=== PATIENT | male | born 1980 ===

== ENCOUNTER 2017-08-24 06:52 | Day surgery (SDC) | payer BC ==
[~2017-08-24 06:52] MED LIST: Buffered Lidocaine 0.9% SYRIN* 5 ML/SYR SYRINGE INTRADERM ONE; Famotidine TAB* 20 MG PO ONE; Metoclopramide TAB* 10 MG PO ONE
[2017-08-24] MEDS ORDERED: Famotidine TAB* 20 MG ONE (07:04)
[2017-08-24] MEDS ORDERED: Metoclopramide TAB* 10 MG ONE (07:04)
[2017-08-24] MEDS ORDERED: Dexamethasone IV* 4 MG/ML 1 ML (4 MG) ONE (08:00)
[2017-08-24] MEDS ORDERED: Mivacurium Chloride* 20 MG/10 ML VIAL IV ONE (08:00)
[2017-08-24] MEDS ORDERED: Ketorolac INJ* 30 MG/ML 1 ML VIAL ONE (08:00)
[2017-08-24] MEDS ORDERED: fentaNYL* 50 MCG/ML 2 ML VIAL (100 MCG VIAL) ONE ×2 (08:00→08:34)
[2017-08-24] MEDS ORDERED: Lidocaine 2% PF * 5 ML VIAL ONE (08:00)
[2017-08-24] MEDS ORDERED: Midazolam* 1 MG/ML 5 ML VIAL (5 MG) ONE (08:00)
[2017-08-24] MEDS ORDERED: Propofol* 10 MG/ML 20 ML BTL IV PUSH ONE (08:00)
[2017-08-24] MEDS ORDERED: Ondansetron INJ* 2 MG/ML VIAL ONE (08:00)
[2017-08-24] MEDS ORDERED: Bupivacaine 0.25% SDV* 30 ML ONE (08:12)
[2017-08-24] MEDS ORDERED: oxyCODONE/Acetamin 5/325 MG* TAB PO PRN (08:15)
[2017-08-24] MEDS ORDERED: fentaNYL* 50 MCG/ML 2 ML VIAL (100 MCG VIAL) IV PRN (08:15)
[2017-08-24] MEDS ORDERED: Naloxone* 0.4 MG/ML 1 ML VIAL IV PRN (08:15)
[2017-08-24] MEDS ORDERED: Ondansetron INJ* 2 MG/ML VIAL IV PRN (08:15)
[2017-08-24] MEDS ORDERED: Lidocain 1% EPI 1:100,000 * 30 ML MDV ONE (09:06)
[2017-08-24] MEDS ORDERED: Bacitracin OINTMENT* 0.5% 0.5 oz TUBE ONE (09:35)
--- NOTE | 2017-08-24 09:43 | BRIEFOPN ---
Brief Operative Note - Surgery Procedures: OPERATIVE REPORT PRE-OP: Chronic pilonidal disease with abscesses POST-OP: Same PROCEDURE: Incision and drainage of chronic pilonidal abscesses and anorectal exam SURGEON: MD Derian ANESTHESIA: General with local with Dr. Maurice ASST: none IVF: min EBL: min SPECIMEN: none DRAIN: none WOUND CLASS: 4 COMPLICATIONS: none TO PACU
[2017-08-24 10:48] VITALS: BP 116/70
--- NOTE | 2017-08-24 14:28 | OP ---
DATE OF OPERATION: 08/24/17 - [facility] DATE OF : 84 SURGEON: Geoffrey Menard MD. ANESTHESIOLOGIST: Dr. Maurice ANESTHESIA: General with local. PRE-OP DIAGNOSIS: Chronic pilonidal disease with abscesses. POST-OP DIAGNOSIS: Chronic pilonidal disease with abscesses with two sinus tracts identified as described below. OPERATIVE PROCEDURE: Incision and drainage of two pilonidal chronic abscesses with seton sutured drainage and anorectal exam under anesthesia. ESTIMATED BLOOD LOSS: Minimal. SPECIMENS: None. COMPLICATIONS: None. WOUND CLASSIFICATION: 4. DRAINS: Two blue vessel loops used as seton sutures in the subcutaneous tissue of the buttocks. BRIEF HISTORY: Mr. Sunday Mckeon is a 36-year-old gentleman who has had at least 10 years of intermittent draining abscesses on bilateral buttock cheeks to the left and right of the midline. He has had some problems with scarring at the midline consistent with pilonidal disease but has not sought care in the past. He complains of severe intermittent discomfort which was spontaneous purulent drainage and improvement in a cycle of persistent infections. He has been on antibiotics in the past. He has had no blood per rectum or noted any incontinence. He has not been treated for perianal or perirectal abscesses. He is now to undergo an elective exam under anesthesia. DESCRIPTION OF PROCEDURE: Written and informed consent was obtained. The patient was taken to the operating room and placed in the supine position. General anesthesia was administered. Then the patient placed in the prone jackknife position. Sequential compression devices and warming blankets were applied. The perineum and both buttocks were prepped and draped in the usual sterile fashion. A timeout verification was completed. On examination at the midline of the sumit cleft, there were some scarring with several pits. At this area however, there was no evidence of abscess or drainage. Laterally to the left about 3 cm off the midline, there was an open chronic area with granulation tissue and induration and when the buttock was palpated, there was purulent discharge. Likewise it was also noted there were two pits at the midline which were chronic and quite furrowed. On the right lateral but lower buttock area, extending almost 8 to 9 cm from the midline and almost lateral to the anus, was a second area of induration with chronic appearing opening and when this was palpated, there was purulent discharge as well. This did not appear to be undrained complete abscess but the area was indurated. The perianal area appeared to be unremarkable without evidence of chronic scarring, pits, fistulous openings and I did perform anoscopy and anorectal exam and I appreciated no evidence of abnormality in the anal canal or distal rectum to suggest fistulous openings. Next, 0.25% Marcaine with 1% lidocaine with epinephrine was infiltrated at the midline and over both areas of the openings left and right. Using a metal probe , I easily passed from the midline to both sinus tract openings both left and right. I opened up the external openings, draining some purulent material as well as a chronic granulation tissue. The tracts were then aggressively debrided with curettes and I opened some at the midline of the sumit cleft to assure adequate drainage. Not wanting to now excise this entire area in consideration of the scar tissue and the relative remote distance of the sinus tract external openings, the decision was made to pass blue vessel loops through both sinus tracts and use these as seton sutures to assure adequate drainage and subsequent resolution of inflammation and infection prior to proceeding with a more formal and possible permanent surgical solution to his problems. Once this was complete, Bacitracin was applied to all the openings and a dry sterile dressing was applied. The patient tolerated the procedure well and was taken to the recovery room in stable condition. [id number] #: [id number] TRUDY
== END 2017-08-24 10:56 | disposition home or self-care (01) ==
LOC: OR 06:52
PROVIDERS: ATTEND Surgery
DX: L05.02 Pilonidal sinus with abscess (principal); Z87.891 Personal history of nicotine dependence
CPT/HCPCS: A9270-GY; J1100; J1885; J2250; J2405; J2704; J3010